=== PATIENT | female | born 1930 | race Caucasian/White ===

== ENCOUNTER 2017-01-01 19:44 | Inpatient (IN) | payer MEDICARE, OTHER ==
[~2017-01-01] VITALS: Ht 167.6 cm; Wt 68.1 kg
--- NOTE | 2017-01-02 08:03 | CO ---
ADMIT: 01/01/2017 RM/LOC: 530 [facility] MR#: [id number] [id number] [facility] [address] [place], [place] [address] ZACHARY TONEY [address] [place] [address] Consultation SEX: F AGE: 86 : 1930 DATE OF CONSULTATION: 01/01/2017 ATTENDING PHYSICIAN: Manuelito Rodarte CONSULTING PHYSICIAN: Brian Kirkland MD CHIEF COMPLAINT: Left wrist and hip pain. HISTORY OF PRESENT ILLNESS: This is an 86-year-old female, who had a mechanical fall at home landing on kind of her left side. She had pain in her left wrist and hip and went to an outside facility and was found have an IT fracture on the left hip and a wrist fracture, was sent here for further evaluation. X-rays here confirmed that as well. She does not really have any other complaints of anything, just pain in her hip and wrist. Otherwise, she is independently mobile at home. REVIEW OF SYMPTOMS: Otherwise negative. PAST MEDICAL HISTORY: She does have a pacemaker, otherwise negative and noncontributory. She does have AFib, sinus sick syndrome, with her current INR of 1.5. MEDICATIONS: Per the medication list. ALLERGIES: NO ALLERGIES. OBJECTIVE: GENERAL: She is awake, alert, and oriented, in no acute distress. VITAL SIGNS: Afebrile. Vital signs are stable. LUNGS: She has no labored breathing. HEART: She does have an irregular heartbeat, but again is consistent with her AFib. MUSCULOSKELETAL: Feet and hands are all well perfused and pink. On the left leg, has positive EHL, FHL, brisk capillary refill and sensation is intact to light touch throughout the foot. Left hip skin is intact. On the left wrist, she has some tenderness over the distal radius, but she wiggles all of her fingers. Intact AIN, PIN, ulnar nerve motor function. Sensation is intact in all fingers. She has brisk capillary refill there as well. Skin is intact. ADMIT: 01/01/2017 RM/LOC: 530 [facility] MR#: [id number] [address] [address] ZACHARY TONEY [address] [place] [address] [address] [place] [address] Consultation SEX: F AGE: 86 : 1930 IMAGING: X-rays shows a distal radius extra-articular fracture with some shortening and dorsal angulation. She also has a left intertrochanteric hip fracture with subtrochanteric extension. ASSESSMENT: An 86-year-old female, with the left intertrochanteric fracture with subtrochanteric extension in the left distal radius fracture. PLAN: We will go ahead and after discussion of the options and the risks, benefits of all possible treatment options, we will go ahead and schedule her for left hip trochanteric fixation nailing as well as a closed reduction and casting of the left wrist, and then she will be admitted to the Medicine Service for perioperative management. Brian Kirkland MD/ lilliana JOB #: [id number] CC: Manuelito Rodarte, Attending Physician Brian Kirkland, Family Physician
--- NOTE | 2017-01-02 23:33 | HP ---
ADMIT: 01/01/2017 RM/LOC: 530 [facility] MR#: [id number] [id number] [facility] [address] [place], [place] [address] ZACHARY TONEY [address] [facility] [facility] [address] [place] [address] History and Physical SEX: F AGE: 86 : 1930 DATE OF SERVICE: CHIEF COMPLAINT: Hip pain and fall. HISTORY OF PRESENT ILLNESS: The patient is a very pleasant, 86-year-old female, normally sees Dr. Alin Lo up in [place] and resides at the assisted living facility. The patient reports that today she just kind of tripped over a rug and fell and landed on her left side, fractured her wrist, fractured her hip. Sent here for further definitive care. Prior to this, she had been in her usual state of health. Normally sees her primary care provider every month for her INR and follow up on her sick sinus syndrome. Has not had any new shortness of breath. No chest pain. No fevers, chills, nausea, or vomiting. Has been eating and drinking well. Normally goes to all the activities in assisted living and walks down the goode just fine. PAST MEDICAL HISTORY: 1. Sick sinus syndrome, status post pacemaker years ago. 2. AFib, on chronic anticoagulation. 3. Osteoarthritis. FAMILY HISTORY: Reviewed and noncontributory. SOCIAL HISTORY: , lives in assisted living for the last 7 years, has family locally as well as in [place]. Nonsmoker. No alcohol use. REVIEW OF SYSTEMS: As per HPI. Otherwise, completely reviewed and negative. MEDICATIONS: She is on: 1. Lasix 40 mg daily. 2. Mag-Ox. 3. Ferrous sulfate. 4. Colace. 5. Diltiazem 360 mg every morning. 6. Aspirin 81 mg daily. 7. Prilosec 20 mg everyday. 8. Potassium chloride 10 mEq two times a day. 9. Metoprolol 100 mg p.o. b.i.d. 10.Warfarin 4 mg everyday. PHYSICAL EXAMINATION: VITAL SIGNS: Blood pressure 160/72, O2 saturation 92% on room air, respiratory rate is 18, pulse is 70. GENERAL: She is alert and oriented x3, in no acute distress, extremely pleasant female. HEENT: Normocephalic, atraumatic. Pupils are equal, round, and reactive to light and accommodation. Extraocular muscles are intact. Moist mucous membranes. NECK: No lymphadenopathy. Soft and supple. Trachea midline. LUNGS: Clear to auscultation bilaterally. No wheezes, rales, or rhonchi. HEART: Regular rate and rhythm. Pacer up in the left subclavicular area. ADMIT: 01/01/2017 RM/LOC: 530 [facility] MR#: [id number] [address] [id number] [place], [place] [address] [address] History and Physical SEX: F AGE: 86 : 1930 PMI at 5th intercostal space. No murmurs, rubs, or gallops. ABDOMEN: Soft, nontender, nondistended. Bowel sounds are present. EXTREMITIES: No cyanosis, clubbing, or edema. MUSCULOSKELETAL: 5/5 strength in the right upper and lower extremity. I did not test left lower extremity due to her pain. Left wrist is in a kind of a brace at this time. She can wiggle her digits just fine. NEUROLOGICAL: No focal deficits noted. Cranial nerves II through XII grossly intact. SKIN: No rashes noted. PSYCHIATRIC: Very pleasant. Normal insight. LABORATORY AND X-RAY DATA: Her INR is 1.53, troponin is negative, magnesium is normal, creatinine is 1.16. AST and ALT are within normal limits. Bicarb 28. White blood cell count 7.5, hemoglobin 13.6, platelets 180. EKG is reviewed. She has a paced rhythm. ASSESSMENT: 1. Hip fracture, acute. 2. Wrist fracture, acute. 3. Atrial fibrillation, status post pacemaker. PLAN: At this point in time, she seems like an okay candidate for the OR, really low risk. We will give her some oral vitamin K to help reverse her INR further. Give her maintenance fluids overnight. Continue her beta-angeli as well as calcium channel angeli for AFib perioperatively. The patient is agreeable to plan. She will likely need longterm facility, likely swing bed afterwards as well as Social work arranges. Manuelito Rodarte MD/ lilliana JOB #: [id number] CC: Manuelito Rodarte, Attending Physician Brian Kirkland, Family Physician
--- NOTE | 2017-01-03 08:33 | OR ---
ADMIT: 01/01/2017 RM/LOC: 530 [facility] MR#: [id number] [address] [address] ZACHARY TONEY [address] [place] [address] [address] [place] [address] Operative/Delivery Room Report SEX: F AGE: 86 : 1930 SURGERY DATE: 01/02/2017 SURGEON: Brian Kirkland MD ENGRAVER [employer]: ADILSON Flores. PREOPERATIVE DIAGNOSIS: Left peritrochanteric hip fracture and a left distal radius articular fracture. POSTOPERATIVE DIAGNOSIS: Left peritrochanteric hip fracture and a left distal radius articular fracture. PROCEDURE PERFORMED: Left hip TFN (trochanteric fixation nail) and a left distal radius closed reduction and casting. BLOOD LOSS: 20. COMPLICATIONS: None. IMPLANTS: Synthes TFN long nail with a distal interlock and a 95 screw. ANESTHESIA: General. INDICATION: This is an 86-year-old female, who had a mechanical fall from standing, suffering a left hip fracture and left wrist fracture. Was sent here from outside facility for definitive care. After discussion of risks and benefits of all the options for fixation we elected to do a TFN and closed reduction of the left wrist. She agreed to proceed with that so she is here for that now. DESCRIPTION OF PROCEDURE: The patient was identified in the preoperative holding area. Written informed consent was confirmed, site was marked. Brought to the OR, placed supine. General anesthesia was induced. She was moved to the fracture table. Put the left foot in the fracture or traction boot and the right in the semi lithotomy position. Then got reduction under fluoroscopy. We were able to realign the neck shaft angle, get our calcar reduced very well without any flexion in the fracture. She was then prepped and draped in the usual sterile fashion. Time-out was performed. Preop antibiotics were confirmed. Made our incision about 2 cm long just proximal to the trochanter, put our guide pin down to the tip of the greater trochanter just lateral to the very tip, brought that down and then opened and reamed and then put our guide pin down to the level of the top of the patella, measured that and then sequentially reamed using the 8.5, and then 11 and then 12.5 and then put down our 11 nail. Used the guide to make an incision over the lateral hip and brought our trocar down to the lateral cortex. Actually we used that to kind of compress the lateral spike that was there and actually push that in a little bit and then put our guide pin up kind of center-center on the AP and lateral into the head, up the neck and then drilled to open up the lateral cortex and then placed a screw. Initially I had measured 105, put ADMIT: 01/01/2017 RM/LOC: 530 [facility] MR#: [id number] [address] [address] ZACHARY TONEY [address] [place] [address] [address] [place] [address] Operative/Delivery Room Report SEX: F AGE: 86 : 1930 100 screw. This looked to me to not be in the joint but it was very close and made me nervous so I took that one out and I put a 95 in, I was much happier with that. Then put the locking bolt down and used the torque wrench to lock it down entirely as there was some subtroch extension. This was not a stable fracture. So then I came down and used perfect [place] technique to put a distal interlock screw in without complication. Once this was done, we irrigated all wounds copiously with normal saline, got my final x-rays and closed with one Vicryl for the deep fascial layer, 2-0 Vicryl, and jazmine for the skin. Put her into sterile dressings and then brought the x-ray up for the left wrist. Did just a standard distal radius reduction technique with accentuating the deformity, actual traction and then levering over my thumb and then pushing it back up to correct the deformity. AP and lateral x-ray showed excellent alignment with zoroastrianism of radial height, inclination, as well as correction of the volar tilt. I then put her into a cast that was well molded. Then she was extubated, brought to the postoperative care unit in good condition. No complications. Postoperatively, we will keep her 25% weightbearing on the left hip and nonweightbearing through the wrist but able to weight bear through the elbow on the left side. Then she will continue with perioperative medical management with medical service. I will get her working with therapy and then I will see her back in 10-14 days for wound check and suture removal. Brian Kirkland MD/ nateg JOB #: [id number] CC: Manuelito Rodarte, Attending Physician Brian Kirkland, Family Physician
--- NOTE | 2017-01-05 10:17 | ER ---
ADMIT: 01/01/2017 RM/LOC: 530 [facility] MR#: [id number] 2620 [facility] [address] [place], [place] [address] ZACHARY TONEY [address] [place] [address] Emergency Room Report SEX: F AGE: 86 : 1930 DATE: 01/01/2017 ADDENDUM: CHIEF COMPLAINT: Known left hip and wrist fracture. HISTORY OF PRESENT ILLNESS: This is an 86-year-old female, who is transferred from [facility] for these two fractures. When asked her how she hurt herself, she said she slipped and fell. It sounds like she fell off the toilet and fractured both the left wrist and hip. PAST MEDICAL HISTORY: Atrial fibrillation, sick sinus syndrome, hypertension. She has a fused disk, a pacemaker, history of tonsillectomy and adenoidectomy. MEDICATIONS: Please see nurse's note. She is on Coumadin. ALLERGIES: NO KNOWN ALLERGIES. SOCIAL HISTORY: Denies any tobacco, drug, or alcohol use. FAMILY HISTORY: Noncontributory. REVIEW OF SYSTEMS: CONSTITUTIONAL: She denies any fevers, chills or sweats. CARDIOVASCULAR AND RESPIRATORY: Denies any chest pain or shortness of breath. GI AND : Denies any nausea, vomiting, or abdominal pain or dysuria. MUSCULOSKELETAL: She does complain of left hip and left wrist having pain, but is better than it was initially. All systems otherwise negative. PHYSICAL EXAMINATION: VITAL SIGNS: Blood pressure is 130/87, pulse is 68, respirations 18, temperature is 97.4, and saturation of oxygen is 99% on room air. GENERAL APPEARANCE: She is in no acute distress and alert. HEENT: There are no signs of injury to her head. Her TMs are non-erythemic. No hemotympanum. Eyes are PERRL and EOMs intact. Mouth, there is no dental injury. NECK: No midline tenderness. Full range of motion with no tenderness. ADMIT: 01/01/2017 RM/LOC: 530 [facility] MR#: [id number] [address] [address] ZACHARY TONEY [address] [place] [address] Emergency Room Report SEX: F AGE: 86 : 1930 ABDOMEN: Soft, nontender. No distention. HEART: Regular rate and rhythm. LUNGS: CTA bilateral. EXTREMITIES: She does have a splint on her left wrist, I did not remove. Left hip has a known fracture, I only palpated, it was tender to palpation. I did not rotate. The left leg is shortened. No pedal edema. NEURO AND PSYCH: She is alert and oriented x3. Mood and affect normal. CLINICAL IMPRESSION: 1. Left hip fracture. 2. Left distal radioulnar fracture. Dr. Rodarte and Dr. Kirkland were both called. Dr. Rodarte is admitting. ADILSON Hamlin / Kevin Birmingham MD / lilliana JOB #: [id number] CC: Manuelito Rodarte MD, Attending Physician Brian Kirkland MD, Family Physician
[2017-01-05] MEDS ORDERED: MIRALAX PACKET17 GM PO (11:38)
[2017-01-05] MEDS ORDERED: PRILOSEC DPS20 MG PO (11:38)
[2017-01-05] MEDS ORDERED: ASPIR 8181 MG PO (11:39)
[2017-01-05] MEDS ORDERED: VITAMIN D3400 UNIT PO (11:39)
[2017-01-05] MEDS ORDERED: MAG-OX400 MG PO (11:40)
[2017-01-05] MEDS ORDERED: COLACE-DPS100 MG PO (11:40)
[2017-01-05] MEDS ORDERED: DILTIAZEM 24HR360 M1 PO (11:40)
[2017-01-05] MEDS ORDERED: FUROSEMIDE20 MG PO (11:40)
[2017-01-05] MEDS ORDERED: FEOSOL-DPS325 MG PO (11:40)
[2017-01-05] MEDS ORDERED: COUMADIN5 MG PO (11:41)
[2017-01-05] MEDS ORDERED: MICRO-K DPS10 MEQ PO (11:41)
[2017-01-05] MEDS ORDERED: METOPROLOL SUC100 MG PO (11:41)
--- NOTE | 2017-01-11 22:37 | DS ---
ADMIT: 01/01/2017 RM/LOC: 530 [facility] MR#: [id number] [address] [place] [address] [place], [place] [address] ZACHARY TONEY [address] [place] [address] Discharge Summary SEX: F AGE: 86 : 1930 ADMISSION DATE: 01/01/2017 DISCHARGE DATE: 01/04/2017 CONSULTATIONS: Brain Kirkland MD, with Orthopedic Surgery. FINAL DIAGNOSES: 1. Fall with acute fracture. 2. Sick sinus syndrome. 3. Atrial fibrillation, on chronic anticoagulation. 4. Osteoarthritis. 5. Acute blood loss anemia. 6. Left-sided wrist fracture. REASON FOR ADMISSION: The patient is a very pleasant, 86-year-old female, fell while at assisted living. Had a fractured wrist and fractured hip. Admitted for further stabilization. HOSPITAL COURSE: The patient was admitted. Underwent surgery. Tolerated it well. Does have some acute blood loss anemia but overall did not require transfusion. The pain was under good control. Eating a general diet. Discharged to swing bed up in [place]. Discussed case with accepting physician up there. DISCHARGE INSTRUCTIONS: She will go to therapy. Have her INR checked up in swing bed. Get back on her anticoagulation. DISCHARGE MEDICATIONS: Please see discharge MAR for full discharge medications. Please add above diagnosis a left-sided wrist fracture. Manuelito Rodarte MD/ josé miguelf JOB #: [id number] CC: Manuelito Rodarte MD, Attending Physician Brian Kirkland MD, Family Physician
[2017-04-07] MEDS ORDERED: TYLENOL DPS325 MG PO (15:39)
[2017-04-07] MEDS ORDERED: MILK OF MAGNESI10 ML PO (15:39)
[2017-04-07] MEDS ORDERED: MAALOX DPS30 ML PO (15:39)
== END 2017-01-04 14:45 | DRG 481 ==
LOC: ER 19:44 → 5MS 20:35
PROVIDERS: ADMIT Internal Medicine
PROC: 0PSJXZZ Reposition Left Radius, External Approach (ICD-10-PCS; principal; 2017-01-02)
PROC: 0QS736Z Reposition Left Upper Femur with Intramedullary Internal Fixation Device, Percutaneous Approach (ICD-10-PCS; principal; 2017-01-02)
PROC: 2W39X2Z Immobilization of Left Upper Extremity using Cast (ICD-10-PCS; principal; 2017-01-02)
DX: S72.142A Displaced intertrochanteric fracture of left femur, initial encounter for closed fracture (principal); S52.502A Unspecified fracture of the lower end of left radius, initial encounter for closed fracture; I48.91 Unspecified atrial fibrillation; I10 Essential (primary) hypertension; D62 Acute posthemorrhagic anemia; K21.9 Gastro-esophageal reflux disease without esophagitis; W19.XXXA Unspecified fall, initial encounter; M19.90 Unspecified osteoarthritis, unspecified site; Z98.1 Arthrodesis status; Z95.0 Presence of cardiac pacemaker; Z79.01 Long term (current) use of anticoagulants